=== PATIENT | male | born 1990 | race Caucasian/White ===

== ENCOUNTER 2016-09-29 17:58 | Emergency (ER) | payer OTHER ==
[~2016-09-29] VITALS: Ht 180.3 cm; Wt 126.6 kg
[2016-09-29 18:07] VITALS: BP 149/85; PULSE 65; TEMP 37.1; O2SAT 96; Ht 180.3 cm; Wt 126.6 kg
[2016-09-29] MEDS ORDERED: ACET-1256 PO (18:19)
[2016-09-29] MEDS ORDERED: TRAM-10 PO (18:30)
--- NOTE | 2016-09-29 21:54 | EMERGENCY ROOM VISIT NOTE ---
History First contact with patient: 18:17 Chief Complaint: KNEEPAIN Stated Complaint: RT KNEE PAIN History of Present Illness The patient is a 25 year old male who presents to the Emergency Room with complaints of persistent right knee pain. The patient reports follow-up with [facility] after being seen in the emergency department last February. He reports that on his last visit, they were going to order an MRI of the knee. The patient reports that he never heard back from their office. He also admits that he has not contacted the office since that visit this past when her period and now has been having worsening pain over the past 2 weeks. The patient denies any injuries since his last ER visit. He is on his feet extensively. He does have a knee brace that he wears, however that is not helping with his pain. He denies any pain extending into the leg, thigh or back. He rates his discomfort an 8 out of 10 with weightbearing. Review of Systems 10 system review was performed and was negative except for pertinent positives and negatives as indicated in history of present illness Past Medical/Surgical History Medical Problems: (1) Asthma Family History FH: heart disease Social History Smoking Status: Never Smoker Alcohol Use: none Marital Status: single Housing Status: lives with significant other Occupation Status: employed Current/Historical Medications Scheduled PRN Acetaminophen (Tylenol), 1,500-2,000 MG PO DIRECTED PRN for Pain Tramadol (Ultram), 1-2 TAB PO Q4H PRN for Pain Allergies Coded Allergies: No Known Allergies (Unverified , 09/29/16) Physical Exam Vital Signs Date Time Temp Pulse Resp B/P (MAP) Pulse Ox O2 Delivery O2 Flow Rate FiO2 09/29/16 18:07 37.1 65 18 149/85 96 Pain Rating (0-10): 3.0 Physical Exam CONSTITUTIONAL: Healthy and well nourished. Alert and oriented X 3 with positive affect. HEENT: Normocephalic, atraumatic. Pupils equal, round and reactive. NECK: Full active range of motion without discomfort. MUSCULOSKELETAL: Examination of the right knee does not show any obvious edema or joint effusion when compared to the contralateral knee. Passive flexion and extension does not cause any significant discomfort. Ligamentous exam is normal. No popliteal masses. Pedal pulses are intact. INTEGUMENTARY: No rash or other significant dermatologic conditions noted. NEUROLOGIC: No focal neurologic deficits noted. Medical Decision & Procedures ED Course Patient history and physical exam were performed. Nurse's notes were reviewed. I did review documentation from the patient's ER visit in February 2016, with x-rays showing an osteochondral defect of the medial femoral condyle. The patient reports that he does have crutches at home. He refused any immobilizer. He was instructed to follow-up with [facility] for further definitive management. I explained what an osteochondral defect is , and the importance of orthopedic follow-up. He was encouraged to take ibuprofen and Tylenol in alternating fashion as needed for pain. If he needs additional pain relief, he was advised that he is putting too much weight on the leg and must use crutches. The patient voiced understanding of all discharge chart and's, was happy with plan of care, refused any analgesics while in the emergency department, and rated his pain a 4 out of 10 at the conclusion of my exam. Medical Decision Impression Primary Impression: Osteochondral defect of femoral condyle Departure Information Dispostion Home / Self-Care Condition GOOD Prescriptions Tramadol (Ultram) 50 Mg Tab 1-2 TAB PO Q4H Y for Pain, #15 TAB For Initial Treatment Prov: Dionisio Tse PA 09/29/16 Referrals Sage Tello M.D. Forms HOME CARE DOCUMENTATION FORM, IMPORTANT VISIT INFORMATION Patient Instructions My [facility] [place] Additional Instructions Intermittently apply ice to knee. Use your crutches to keep weight off of the knee. Your best form of pain management is use of crutches. Ibuprofen 800 mg and/or Tylenol 1000 mg every 8 hours. You may also alternate these medications for more effective pain relief: Ibuprofen --4 HRS--> Tylenol --4 HRS--> ibuprofen --4 HRS--> Tylenol .... Ultram if needed for worse pain. Follow-up with orthopedics for further reevaluation and management.
== END 2016-09-29 18:46 | disposition home or self-care (01) ==
LOC: C.EDB 17:59 → C.EDD 18:46
DX: M95.8 Other specified acquired deformities of musculoskeletal system (principal); J45.909 Unspecified asthma, uncomplicated